=== PATIENT | female | born 1985 | race Caucasian/White ===

== ENCOUNTER 2018-06-09 09:31 | Inpatient (IN) | payer MEDICAID ==
[2018-06-09] MEDS ORDERED: MISOPROSTOL 200 MCG TAB PR ×2 (10:30→21:30)
[2018-06-09] MEDS ORDERED: CARBOPROST 250 MCG INJ IM ×2 (10:30→21:30)
[2018-06-09] MEDS ORDERED: OXYTOCIN 30 UNITS/LR 500 ML IV ×2 (10:30→21:30)
[2018-06-09] MEDS ORDERED: METHYLERGONOVINE 0.2 MG INJ IM ×2 (10:30→21:30)
[2018-06-09 10:39] LABS: ADD MAN DIFF? NO
[2018-06-09 10:46] LABS: BASOPHILS % 0.4 % (0.0-2.0); EOSINOPHILS # 0.1 10^3/ul (0.0-0.5); EOSINOPHILS % 1.1 % (0.0-7.0); HEMATOCRIT 35.7 % (37.0-47.0); HEMOGLOBIN 11.6 g/dl (12.0-16.0); LYMPHOCYTES # 2.4 10^3/ul (0.8-2.9); LYMPHOCYTES % 21.2 % (15.0-51.0); MEAN CORPUSCULAR HEMOGLOBIN 27.6 pg (29.0-33.0); MEAN CORPUSCULAR HGB CONC 32.5 g/dl (32.0-37.0); MEAN PLATELET VOLUME 9.2 fl (7.4-10.4); MONOCYTE # 0.8 10^3/ul (0.3-0.9); MONOCYTES % 6.8 % (0.0-11.0); NEUTROPHIL # 7.8 10^3/ul (1.6-7.5); PLATELET COUNT 341 10^3/UL (140-415)
[2018-06-09 10:46] LABS: WHITE BLOOD COUNT 11.4 10^3/ul (4.8-10.8)
[2018-06-09 11:01] LABS: INR 0.86; PROTIME 11.8 Sec (11.9-14.9); PT RATIO 0.9
[2018-06-09 11:02] LABS: PARTIAL THROMBOPLASTIN TIME 27.5 Sec (25.0-35.0)
[2018-06-09] MEDS: LACTATED RINGER'S 1,000 ML IV ×2 (11:07→11:29)
[2018-06-09] MEDS: BUTORPHANOL 2 MG INJ IV (11:13)
[2018-06-09] MEDS ORDERED: morphine 2 MG INJ IV (17:30)
[2018-06-09] MEDS ORDERED: NALOXONE (0.4 MG/ML) INJ IV (17:30)
[2018-06-09] MEDS ORDERED: ONDANSETRON 4 MG INJ IV (17:30)
[2018-06-09] MEDS: OXYTOCIN 30 UNITS/LR 500 ML IV ×2 (17:33→21:24)
[2018-06-09] MEDS: CEFAZOLIN 2 GM/50 ML (PMX) 50 ML IV (19:15)
[2018-06-09] MEDS: KETOROLAC 30 MG INJ IV (19:50)
[2018-06-09] MEDS ORDERED: BUPIVACAINE 0.75%/DEXT (SPINAL) 2 ML INJ (19:57)
[2018-06-09] MEDS ORDERED: ONDANSETRON 4 MG INJ (19:57)
[2018-06-09] MEDS ORDERED: FENTAnyl 50 MCG/ML VIAL (19:57)
[2018-06-09] MEDS ORDERED: morphine SULFATE/PF (10 MG/10 ML) INJ (19:57)
[2018-06-09] MEDS ORDERED: OXYTOCIN 10 UNIT INJ (19:58)
[2018-06-09] MEDS: DIPHENHYDRAMINE 50 MG INJ IV (20:13)
[2018-06-09] MEDS ORDERED: HYDROCODONE/APAP (5/325) TAB PO (21:30)
[2018-06-09] MEDS ORDERED: NACL 0.9% 3 ML SYG IV (21:30)
[2018-06-10] MEDS: TERBUTALINE 1 MG/ML INJ SC (05:20)
[2018-06-10] MEDS: DIPHENHYDRAMINE 50 MG INJ IV (06:06)
[2018-06-10] MEDS: LACTATED RINGER'S 1,000 ML IV ×3 (06:57→14:43)
[2018-06-10 10:29] LABS: ADD MAN DIFF? NO
[2018-06-10 10:37] LABS: WHITE BLOOD COUNT 12.7 10^3/ul (4.8-10.8)
[2018-06-10 10:37] LABS: BASOPHILS % 0.2 % (0.0-2.0); EOSINOPHILS # 0.1 10^3/ul (0.0-0.5); EOSINOPHILS % 0.8 % (0.0-7.0); HEMATOCRIT 27.3 % (37.0-47.0); HEMOGLOBIN 8.8 g/dl (12.0-16.0); LYMPHOCYTES # 1.9 10^3/ul (0.8-2.9); LYMPHOCYTES % 14.9 % (15.0-51.0); MEAN CORPUSCULAR HEMOGLOBIN 27.6 pg (29.0-33.0); MEAN CORPUSCULAR HGB CONC 32.2 g/dl (32.0-37.0); MEAN CORPUSCULAR VOLUME 85.6 fl (82.0-101.0); MEAN PLATELET VOLUME 9.2 fl (7.4-10.4); MONOCYTES % 7.7 % (0.0-11.0); NEUTROPHIL # 9.5 10^3/ul (1.6-7.5); NEUTROPHILS % 75.5 % (39.0-77.0); PLATELET COUNT 288 10^3/UL (140-415); RED BLOOD COUNT 3.19 10^6/ul (4.20-5.40); RED CELL DISTRIBUTION WIDTH 15.9 % (11.5-14.5)
[2018-06-10] MEDS: GUAIFENESIN 20 MG/ML 5ML CUP PO (12:29)
[2018-06-10] MEDS: KETOROLAC 30 MG INJ IV (14:44)
[2018-06-10 15:12] LABS: RAPID PLASMA REAGIN NONREACTIVE (NR)
[2018-06-10] MEDS: HYDROCODONE/APAP (5/325) TAB PO (20:00)
[2018-06-10] MEDS: IBUPROFEN 800 MG TAB PO (21:56)
[2018-06-11] MEDS: IBUPROFEN 800 MG TAB PO ×4 (05:15→23:27)
[2018-06-11] MEDS: LANOLIN 7 GM TUBE TOP (09:40)
[2018-06-11] MEDS: HYDROCODONE/APAP (5/325) TAB PO (09:41)
[2018-06-11] MEDS: DOCUSATE SODIUM 100 MG CAP PO ×2 (12:20→20:55)
[2018-06-11] MEDS: NA PHOSPHATE/BIPHOS 133 ML ENEMA PR (20:55)
[2018-06-11] MEDS: GUAIFENESIN 20 MG/ML 5ML CUP PO (20:56)
[2018-06-12] MEDS: IBUPROFEN 800 MG TAB PO ×2 (05:22→12:24)
[2018-06-12] MEDS ORDERED: MEASLES,MUMPS,RUBELLA VACCINE INJ SC* (09:00)
[2018-06-12] MEDS: DOCUSATE SODIUM 100 MG CAP PO (09:05)
[2018-06-12] MEDS: HYDROCODONE/APAP (5/325) TAB PO (09:06)
[2018-06-12] MEDS: DIPHTH/TET/ACEL PERTUSS (ADULT) 0.5 ML VIAL IM* (13:13)
== END 2018-06-12 18:30 | disposition home or self-care (01) | DRG 766 ==
LOC: OBT 09:31 → L-D 09:31 → OBT 09:58 → L-D 09:58 → PP1 21:05
PROVIDERS: Obstetrics & Gynecology
PROC: 10D00Z1 Extraction of Products of Conception, Low, Open Approach (ICD-10-PCS; principal; 2018-06-09 12:00)
PROC: 3E033VJ Introduction of Other Hormone into Peripheral Vein, Percutaneous Approach (ICD-10-PCS; 2018-06-09 12:00)
DX: O34.211 Maternal care for low transverse scar from previous cesarean delivery (principal); Z3A.38 38 weeks gestation of pregnancy; Z37.0 Single live birth
CPT/HCPCS: 85025; 85610; 85730; 86592; 86850; 86900; 86901; 90715; 99464